=== PATIENT | male | born 1975 | race Caucasian/White ===

== ENCOUNTER 2020-05-09 15:37 | Outpatient (CLI) | payer SELFPAY ==
[2020-05-09 16:12] LABS: Basophils # 0.1 10^3/uL (0.0-0.1); Basophils % 0.8 %; Eosinophils % 0.1 %; Hematocrit 49.7 % (42.0-52.0); Hemoglobin 16.9 g/dL (11.7-16.6); Lymphocytes # 2.7 10^3/uL (0.8-4.8); Lymphocytes % 15.9 %; Mean Corpuscular Hemoglobin 27.7 pg (28.0-34.0); Mean Corpuscular Volume 81.5 fL (80-94); Mean Platelet Volume 10.5 fL (7.4-10.4); Monocytes # 1.1 10^3/uL (0.2-0.9); Monocytes % 6.6 %; Neutrophils # 12.89 10^3/uL (1.8-7.7); Neutrophils % 76.1 %; Nucleated Red Blood Cells % 0 %; Platelet Count 471 10^3/cmm (130-400); Red Cell Distribution Width 13.2 % (12.1-15.1); White Blood Count 16.9 10^3/uL (4.0-10.0)
[2020-05-09 16:34] LABS: Alanine Aminotransferase 7 U/L (0-41); Albumin Level 4.4 g/dL (3.5-5.2); Alkaline Phosphatase 44 IU/L (40-130); Anion Gap 19.9 (5-19); Aspartate Amino Transferase 12 U/L (0-40); Blood Urea Nitrogen 26 mg/dL (6-20); Calcium 10.5 mg/dL (8.5-10.5); Carbon Dioxide 25 mmol/L (22-29); Chloride 94 mmol/L (98-107); Globulin 4.4 g/dL (1.3-4.6); Glomerular Filtration Rate 51.3 mL/min (90-130); Glucose 152 mg/dL (65-115); Osmolality Calculated 290 mOsm/kg (285-295); Sodium 136 mmol/L (136-145); Total Bilirubin 0.4 mg/dL (0.15-1.2); Total Protein 8.8 g/dL (6.6-8.7)
[2020-05-09 16:41] LABS: Potassium 2.9 mmol/L (3.5-5.1)
[2020-05-09 17:08] LABS: Estmated Average Glucose 134; Hemoglobin A1C 6.3 % (4.0-6.0)
== END 2020-05-09 15:38 | disposition home or self-care (01) ==
LOC: LAB 15:40
PROVIDERS: Visit Provider General Practice
DX: E11.9 Type 2 diabetes mellitus without complications (principal)
CPT/HCPCS: 80053; 83036; 85025

== ENCOUNTER 2020-05-23 18:17 | Outpatient (CLI) | payer SELFPAY ==
[2020-05-23 19:40] LABS: Anion Gap 17.7 (5-19); Blood Urea Nitrogen 22 mg/dL (6-20); Carbon Dioxide 23 mmol/L (22-29); Chloride 98 mmol/L (98-107); Glomerular Filtration Rate 41.6 mL/min (90-130); Glucose 172 mg/dL (65-115); Osmolality Calculated 287 mOsm/kg (285-295); Potassium 3.7 mmol/L (3.5-5.1); Sodium 135 mmol/L (136-145)
[2020-05-23 20:07] LABS: Erythrocyte Sedimentation Rate 18 mm/hr (0-10)
== END 2020-05-23 18:18 | disposition home or self-care (01) ==
LOC: LAB 18:19
PROVIDERS: Visit Provider General Practice
DX: E87.6 Hypokalemia (principal); N18.9 Chronic kidney disease, unspecified; M21.379 Foot drop, unspecified foot
CPT/HCPCS: 80048; 85651

== ENCOUNTER → 2021-05-27 11:20 | Outpatient (BNVA) | payer MEDICAID, SELFPAY | PROVIDERS: PCP General Practice; Visit Provider Nurse Practitioner | DX: E11.65 Type 2 diabetes mellitus with hyperglycemia (principal); F17.210 Nicotine dependence, cigarettes, uncomplicated | CPT/HCPCS: 71046; 80053; 80061; 82043; 83036; 85025 ==

== ENCOUNTER → 2021-09-30 09:17 | Outpatient (BNVA) | payer MEDICAID, SELFPAY | PROVIDERS: PCP Nurse Practitioner; Visit Provider Nurse Practitioner | DX: E11.65 Type 2 diabetes mellitus with hyperglycemia (principal); I10 Essential (primary) hypertension; E11.43 Type 2 diabetes mellitus with diabetic autonomic (poly)neuropathy; K31.84 Gastroparesis; F17.210 Nicotine dependence, cigarettes, uncomplicated; E66.9 Obesity, unspecified | CPT/HCPCS: 80053; 83036; 85025 ==

== ENCOUNTER → 2021-11-10 14:11 | Outpatient (BNVA) | payer MEDICAID, SELFPAY | PROVIDERS: PCP Nurse Practitioner; Visit Provider Nurse Practitioner | DX: I10 Essential (primary) hypertension (principal); E11.65 Type 2 diabetes mellitus with hyperglycemia | CPT/HCPCS: 80053 ==

== ENCOUNTER → 2021-12-15 08:35 | Outpatient (BNVA) | payer MEDICAID, SELFPAY | PROVIDERS: PCP Nurse Practitioner; Visit Provider Nurse Practitioner | DX: E11.65 Type 2 diabetes mellitus with hyperglycemia (principal); E11.43 Type 2 diabetes mellitus with diabetic autonomic (poly)neuropathy; R00.0 Tachycardia, unspecified | CPT/HCPCS: 80053; 80061; 83036; 84443 ==

== ENCOUNTER → 2021-12-16 11:49 | Outpatient (BNVA) | payer MEDICAID, SELFPAY | PROVIDERS: PCP Nurse Practitioner; Visit Provider Nurse Practitioner | DX: E11.65 Type 2 diabetes mellitus with hyperglycemia (principal) | CPT/HCPCS: 81000 ==

== ENCOUNTER → 2022-04-01 13:12 | Outpatient (BNVA) | payer MEDICAID, SELFPAY | PROVIDERS: PCP Nurse Practitioner; Visit Provider Nurse Practitioner | DX: E11.65 Type 2 diabetes mellitus with hyperglycemia (principal) | CPT/HCPCS: 80053; 81000; 82043; 83036 ==

== ENCOUNTER → 2022-06-24 10:44 | Outpatient (BNVA) | payer MEDICAID, SELFPAY | PROVIDERS: PCP Nurse Practitioner; Visit Provider Nurse Practitioner | DX: E11.65 Type 2 diabetes mellitus with hyperglycemia (principal); E11.43 Type 2 diabetes mellitus with diabetic autonomic (poly)neuropathy; K31.84 Gastroparesis; E11.22 Type 2 diabetes mellitus with diabetic chronic kidney disease; I12.9 Hypertensive chronic kidney disease with stage 1 through stage 4 chronic kidney disease, or unspecified chronic kidney disease; N18.30 Chronic kidney disease, stage 3 unspecified | CPT/HCPCS: 80053; 80061; 81000; 83036 ==

== ENCOUNTER → 2022-09-28 09:40 | Outpatient (BNVA) | payer MEDICAID, SELFPAY | PROVIDERS: PCP Nurse Practitioner; Visit Provider Nurse Practitioner | DX: E11.65 Type 2 diabetes mellitus with hyperglycemia (principal); N18.30 Chronic kidney disease, stage 3 unspecified | CPT/HCPCS: 80053; 80061; 81000; 83036 ==

== ENCOUNTER → 2023-02-22 08:47 | Outpatient (BNVA) | payer MEDICAID, SELFPAY | PROVIDERS: PCP Nurse Practitioner; Visit Provider Nurse Practitioner | DX: E11.65 Type 2 diabetes mellitus with hyperglycemia (principal) | CPT/HCPCS: 80053; 80061; 81000; 82043; 83036 ==

== ENCOUNTER → 2023-06-01 09:53 | Outpatient (BNVA) | payer MEDICAID, SELFPAY | PROVIDERS: PCP Nurse Practitioner; Visit Provider Nurse Practitioner | DX: I10 Essential (primary) hypertension (principal); E11.65 Type 2 diabetes mellitus with hyperglycemia; E78.1 Pure hyperglyceridemia | CPT/HCPCS: 80053; 80061; 81000; 83036 ==

== ENCOUNTER 2025-03-25 14:15 | Emergency (ER) | payer SELFPAY ==
[2025-03-25 14:16] VITALS: BP 171/118; PULSE 106; RESP 16; TEMP 36.8; O2SAT 97; BMI 29.4
--- NOTE | 2025-03-25 14:26 | XRR_ITS ---
PROCEDURE INFORMATION: Exam: XR Right Foot Exam date and time: 03/25/2025 3:36 PM Age: 49 years old Clinical indication: Injury or trauma; Fall; Blunt trauma; Foot; Right; Additional info: Pain/fall/swelling TECHNIQUE: Imaging protocol: Radiologic exam of the right foot. Views: 3 or more views. COMPARISON: CR XR ankle RT min 3V* [id number] 03/25/2025 3:36 PM FINDINGS: Bones/joints: No acute fractures. No dislocations. No significant osseous lesions. Soft tissues: Mild soft tissue swelling anterior to the ankle. Mild soft tissue swelling of the distal aspect 1st toe. XR/XR foot RT min 3V* [id number] IMPRESSION: 1. No acute fractures or malalignment. 2. Mild soft tissue swelling anterior to the ankle. 3. Mild soft tissue swelling of the distal aspect 1st toe.
--- NOTE | 2025-03-25 14:26 | XRR_ITS ---
PROCEDURE INFORMATION: Exam: XR Right Ankle Exam date and time: 03/25/2025 3:36 PM Age: 49 years old Clinical indication: Injury or trauma; Fall; Blunt trauma; Ankle; Right; Additional info: Fall/swelling TECHNIQUE: Imaging protocol: Radiologic exam of the right ankle. Views: 3 or more views. COMPARISON: CR XR foot RT min 3V* [id number] 03/25/2025 3:36 PM FINDINGS: Bones/joints: No acute fractures. No dislocations. No significant osseous lesions. Soft tissues: Mild soft tissue swelling about the ankle. XR/XR ankle RT min 3V* [id number] IMPRESSION: 1. No acute fractures or malalignment. 2. Mild soft tissue swelling about the ankle.
--- NOTE | 2025-03-25 14:26 | XRR_ITS ---
PROCEDURE INFORMATION: Exam: XR Right Knee Exam date and time: 03/25/2025 3:32 PM Age: 49 years old Clinical indication: Pain; Knee; Right; Additional info: RT knee pain/swelling post fall yesterday TECHNIQUE: Imaging protocol: Radiologic exam of the right knee. Views: 2 views. COMPARISON: No relevant prior studies available. FINDINGS: Bones/joints: No acute fractures. No dislocations. No significant osseous lesions. Soft tissues: No significant soft tissue abnormalities. XR/XR knee RT 3V* [id number] IMPRESSION: No acute fractures or malalignment.
--- NOTE | 2025-03-25 14:26 | XRR_ITS ---
PROCEDURE INFORMATION: Exam: XR Right Hand Exam date and time: 03/25/2025 3:24 PM Age: 49 years old Clinical indication: Pain; Hand; Right; Additional info: RT hand/forearm pain/swelling post fall yesterday TECHNIQUE: Imaging protocol: Radiologic exam of the right hand. Views: 3 or more views. COMPARISON: CR XR forearm RT 2V [id number] 03/25/2025 3:24 PM FINDINGS: Bones/joints: No acute fractures. No dislocations. No significant osseous lesions. Soft tissues: No significant soft tissue abnormalities. XR/XR hand RT min 3V* [id number] IMPRESSION: No acute fractures or malalignment.
--- NOTE | 2025-03-25 14:26 | XRR_ITS ---
PROCEDURE INFORMATION: Exam: XR Right Forearm Exam date and time: 03/25/2025 3:24 PM Age: 49 years old Clinical indication: Pain; Lower or forearm; Right; Additional info: RT hand/forearm pain/swelling post fall yesterday TECHNIQUE: Imaging protocol: Radiologic exam of the right forearm. Views: 2 views. COMPARISON: CR XR hand RT min 3V* [id number] 03/25/2025 3:24 PM FINDINGS: Bones/joints: Normal. Soft tissues: Normal. XR/XR forearm RT 2V [id number] IMPRESSION: No acute findings.
--- NOTE | 2025-03-25 14:27 | CTR_ITS ---
PROCEDURE INFORMATION: Exam: CT Cervical Spine Without Contrast Exam date and time: 03/25/2025 2:45 PM Age: 49 years old Clinical indication: Injury or trauma; Fall; Blunt trauma TECHNIQUE: Imaging protocol: Computed tomography of the cervical spine without contrast. Radiation optimization: All CT scans at this facility use at least one of these dose optimization techniques: automated exposure control; mA and/or kV adjustment per patient size (includes targeted exams where dose is matched to clinical indication); or iterative reconstruction. COMPARISON: CT head wo con* [id number] 03/25/2025 2:45 PM RADIATION DOSE METRICS: Total DLP (mGy-cm): 287.5 FINDINGS: Bones: No acute fractures. No bony destructive lesions. Advanced degenerative disc changes at C5-C6. Lungs: Lung apices are normal. Soft tissues: Unremarkable. CT/CT cervical spin wo con* [id number] IMPRESSION: 1. No acute fractures or malalignment. 2. Advanced degenerative disc changes at C5-C6.
--- NOTE | 2025-03-25 14:27 | CTR_ITS ---
PROCEDURE INFORMATION: Exam: CT Head Without Contrast Exam date and time: 03/25/2025 2:45 PM Age: 49 years old Clinical indication: Injury or trauma; Fall; Blunt trauma (contusions or hematomas); Additional info: Fall yesterday, hit head TECHNIQUE: Imaging protocol: Computed tomography of the head without contrast. Radiation optimization: All CT scans at this facility use at least one of these dose optimization techniques: automated exposure control; mA and/or kV adjustment per patient size (includes targeted exams where dose is matched to clinical indication); or iterative reconstruction. COMPARISON: CT cervical spin wo con* [id number] 03/25/2025 2:45 PM RADIATION DOSE METRICS: Total DLP (mGy-cm): 1140.9 FINDINGS: Brain: No intracranial hemorrhage. Dobbs-white matter differentiation preserved. Periventricular white matter hypoattenuation most consistent with chronic microangiopathic changes. Cgwb-ps-bdvjkaym diffuse parenchymal volume loss. Small right basal ganglia chronic lacunar infarcts. Cerebral ventricles: No ventriculomegaly. Paranasal sinuses: Visualized sinuses are unremarkable. No fluid levels. Mastoid air cells: Visualized mastoid air cells are well aerated. Bones: Unremarkable. No acute fracture. Soft tissues: Unremarkable. CT/CT head wo con* [id number] IMPRESSION: 1. No acute intracranial findings. 2. Periventricular white matter hypoattenuation most consistent with chronic microangiopathic changes. 3. Rzrc-wq-gttppmkz diffuse parenchymal volume loss.
--- NOTE | 2025-03-25 14:45 | W.ED.FALL ---
HPI - Fall General: Chief Complaint: Fall Stated Complaint: right arm/leg pain s/p fall Time Seen by Provider: 03/25/25 14:18 Source: patient Mode of arrival: EMS Limitations: no limitations History of Present Illness: Patient is a 49 y/o Male presenting by EMS for a fall that occurred yesterday about around 1300. Patient states he thinks he was sleepwalking when taking a nap and fell off of his bed. He notes that he injured his right upper and lower extremity in the process, and did hit his head but denies LOC. No blood thinner use. He states that initially the pain was mild but has steadily worsened to the point where he cannot bear weight on his right leg due to the pain in his knee and ankle. He also reported swelling in his right hand that has worsened to the point where he cannot make a fist. He also reports numbness radiating up the right arm from the pain and swelling in his hand. No other injuries reported. No SOB, CP, N/V/D, abdominal pain, or other symptoms. He is requesting something for pain at this time. He was able to get up under his own power immediately after the fall. MD complaint: fall Onset (ago): day(s) Fall from: out of bed Fall witnessed: no Place fall occurred: home Loss of consciousness: None Prolonged down time: no Symptoms prior to fall: none Context: other (states he fell because he was sleepwalking) Location of injury - extremities: Right: arm, hand, knee, lower leg and ankle Associated symptoms-after fall: Denies abdominal pain, chest pain, headache(s) or neck pain Related Data Previous Rx's ?Medication ?Instructions ?Recorded blood-glucose meter (OneTouch #1 ea 06/13/21 Ultra2 Meter kit) blood sugar diagnostic (OneTouch #50 ea 06/18/21 Ultra Test strips) amlodipine 10 mg tablet (Norvasc) 10 mg PO DAILY #30 tabs 06/01/23 lisinopril 40 mg tablet 40 mg PO DAILY #30 tabs 06/01/23 metoprolol succinate 50 mg 50 mg PO DAILY #30 tabs 06/01/23 tablet,extended release 24 hr (Toprol XL) potassium chloride 10 mEq 10 meq PO DAILY #30 tabs 06/01/23 tablet,extended release rosuvastatin 5 mg tablet (Crestor) 5 mg PO DAILY #30 tabs 06/01/23 fenofibrate nanocrystallized 48 mg 48 mg PO DAILY #30 tabs 06/03/23 tablet (Tricor) dulaglutide 1.5 mg/0.5 mL 1.5 mg (0.5 mL) SUBCUT .weekly #2 06/14/23 subcutaneous pen injector mL (Trulicity) insulin degludec 100 unit/mL (3 10 unit (0.1 mL) SUBCUT DAILY #15 06/14/23 mL) subcutaneous pen (Tresiba mL FlexTouch U-100 insulin) pen needle, diabetic 33 gauge x #100 ea 06/14/23/ ketorolac 10 mg tablet 10 mg PO Q8H PRN pain #15 tabs 03/25/25 Allergies Allergy/AdvReac Type Severity Reaction Status Date / Time No Known Allergies Allergy Unverified 06/01/23 09:20 Review of Systems General: Reports: 10 or more systems reviewed and unremarkable except in HPI and below Const: Reports: other (fall); Denies: fever(s) or chills Card: Denies: chest pain Resp: Denies: dyspnea or productive cough GI: Denies: abdominal pain, nausea, vomiting or diarrhea : Denies: flank pain Musc: Reports: extremity pain, extremity swelling, joint pain, joint swelling and limited range of motion; Denies: neck pain, back pain, joint redness, joint warmth or muscle weakness Skin/Breast: Denies: rash Neuro: Denies: headache(s), numbness in extremities or weakness in extremities PFSH ED PFSH: Medical History CKD (chronic kidney disease) stage 3, GFR 30-59 ml/min Obesity (BMI 30-39.9) Gastroparesis due to DM Cigarette smoker History of right foot drop 2020 Essential hypertension Diabetes mellitus with hyperglycemia, without long-term current use of insulin Surgical History History of skin graft right hand Family History Family/Other Cancer Uncle with liver and lung Cigarette smoker Grandmother Diabetes Hypertension Grandfather Hypertension Stroke Mother Hypertension Father Hypertension Other Dementia Denies family history of Anesthesia complication Bleeding disorder Social History Smoking and tobacco/nicotine status: current every day tobacco/nicotine user Alcohol intake: former Substance/Drug Use: never Adopted: No Caregiver/support person: No Lives independently: Yes Household members: family Housing: House Marital status: Single Number of children: 0 service: No Current occupational status: unemployed Current occupational exposures/hazards: No Pets and animals: Yes Do you think of yourself as: Straight/Heterosexual Current gender identity: Male Physical Exam Const: COMMON NORMALS: no acute distress, patient oriented x3, no limitations, healthy appearing, alert and well nourished HENMT: COMMON NORMALS: normocephalic and atraumatic HEAD & SCALP: normocephalic and atraumatic Neck/C-Spine: COMMON NORMALS: full ROM, supple and no meningeal signs Resp: COMMON NORMALS: normal respiratory effort, No use of accessory muscles and clear to auscultation bilaterally AUSCULTATION: clear to auscultation bilaterally Cardio: COMMON NORMALS: regular rate and regular rhythm RATE: regular rate RHYTHM: regular rhythm Extremity: COMMON NORMALS: normal to inspection, full ROM, capillary refill normal, no joint enlargement and no clubbing, cyanosis or edema NARRATIVE EXTREMITY EXAM: Edema and tenderness to dorsum of right hand Edema of right ankle, tender to palpation long lateral malleolus All other joints and extremities palpated and nontender Neuro: COMMON NORMALS: patient oriented x3, moves all extremities, no focal motor deficits and no sensory deficits noted SENSORIUM/ORIENTATION: Yes alert MENINGEAL SIGNS: Yes no meningeal signs Skin: NARRATIVE SKIN EXAM: Chronic wounds to bilateral lower extremities in various stages of healing Course Vital Signs: Vital signs: Vital Signs Temperature 98.3 F 03/25/25 14:16 Pulse Rate 76 03/25/25 16:12 Respiratory Rate 16 03/25/25 14:16 Blood Pressure 162/101 03/25/25 16:12 Pulse Oximetry 95 03/25/25 16:12 Oxygen Delivery Me thod Room Air 03/25/25 16:12 MDM - Fall Medical Decision Making Patient presented to the emergency department by EMS for fall yesterday, injuring right upper and lower extremity. X-rays were all unremarkable, and his head and neck were scanned by CT and also negative. Toradol was given for pain and upon recheck states that he felt better. He will be allowed discharged home with conservative therapy discussed. Lab Data Radiology Impressions Ankle X-Ray 03/25/25 14:26 IMPRESSION: 1. No acute fractures or malalignment. 2. Mild soft tissue swelling about the ankle. Foot X-Ray 03/25/25 14:26 IMPRESSION: 1. No acute fractures or malalignment. 2. Mild soft tissue swelling anterior to the ankle. 3. Mild soft tissue swelling of the distal aspect 1st toe. Forearm X-Ray 03/25/25 14:26 IMPRESSION: No acute findings. Hand X-Ray 03/25/25 14:26 IMPRESSION: No acute fractures or malalignment. Knee X-Ray 03/25/25 14:26 IMPRESSION: No acute fractures or malalignment. Cervical Spine CT 03/25/25 14:27 IMPRESSION: 1. No acute fractures or malalignment. 2. Advanced degenerative disc changes at C5-C6. Head CT 03/25/25 14:27 IMPRESSION: 1. No acute intracranial findings. 2. Periventricular white matter hypoattenuation most consistent with chronic microangiopathic changes. 3. Kmhu-ku-aioxckoi diffuse parenchymal volume loss. All radiology interpretation(s) finalized by discharge Discharge Plan Discharge Patient Disposition: Home Clinical Impression: Fall Qualifiers: Encounter type: initial encounter Qualified Code(s): W19.XXXA - Unspecified fall, initial encounter Right ankle sprain Qualifiers: Encounter type: initial encounter Involved ligament of ankle: unspecified ligament Qualified Code(s): S93.401A - Sprain of unspecified ligament of right ankle, initial encounter Right knee sprain Qualifiers: Encounter type: initial encounter Involved ligament of knee: unspecified ligament Qualified Code(s): S83.91XA - Sprain of unspecified site of right knee, initial encounter Contusion of hand, right Qualifiers: Encounter type: initial encounter Qualified Code(s): S60.221A - Contusion of right hand, initial encounter CHI (closed head injury) Qualifiers: Encounter type: initial encounter Qualified Code(s): S09.90XA - Unspecified injury of head, initial encounter Condition: Stable Prescriptions: New ketorolac 10 mg tablet 10 mg PO Q8H PRN (Reason: pain) Qty: 15 0RF No Action (DME) blood-glucose meter [OneTouch Ultra2 Meter] Kit See Rx Instructions .Route Qty: 1 0RF Rx Instructions: As directed amlodipine [Norvasc] 10 mg tablet 10 mg PO DAILY Qty: 30 2RF lisinopril 40 mg tablet 40 mg PO DAILY Qty: 30 2RF metoprolol succinate [Toprol XL] 50 mg tablet extended release 24 hr 50 mg PO DAILY Qty: 30 2RF potassium chloride 10 mEq tablet extended release 10 meq PO DAILY Qty: 30 2RF rosuvastatin [Crestor] 5 mg tablet 5 mg PO DAILY Qty: 30 2RF fenofibrate nanocrystallized [Tricor] 48 mg tablet 48 mg PO DAILY Qty: 30 2RF (DME) OneTouch Ultra Test Strip See Rx Instructions .Route Qty: 50 5RF Rx Instructions: 1 daily Trulicity 1.5 mg/0.5 mL pen injector 1.5 mg SUBCUT .weekly Qty: 2 2RF insulin degludec [Tresiba FlexTouch U-100] 100 unit/mL (3 mL) insulin pen 10 unit SUBCUT DAILY Qty: 15 0RF (DME) pen needle, diabetic 33 gauge x 5/32 needle See Rx Instructions .ROUTE .MEDSUPPLY Qty: 100 5RF Rx Instructions: 1 time day Discharge Orders: Discharge ED (Routine); Ordered 03/25/25 Ordered By: Markos Kaye Patient Instructions: Patient Portal & [facility] Instructions Activity Restrictions/Additional Instructions: Home recovery plan These instructions are for a 49-year-old male with: - Right ankle sprain - Right knee sprain - Right hand contusion (bruise) - Mild head injury (concussion) with a normal CT scan The plan is gentle rest and recovery at home. Please read all sections, including when to seek help. What to expect - Pain, swelling, and stiffness are common for the first few days after a sprain or bruise. These usually improve steadily over 1?2 weeks, with full recovery taking several weeks depending on severity. - After a mild head injury with a normal CT scan, most adults recover within days to a few weeks. Some may have headache, fatigue, mild dizziness, trouble concentrating, or sleep changes. These usually get better with time and pacing of activities. First 48?72 hours: protect and reduce swelling - Protection and rest: Limit activities that increase pain or swelling. Use a brace or supportive wrap for the ankle as advised. Avoid high-impact activities. - Ice (cold packs): Apply cold packs wrapped in a thin cloth to the ankle, knee, and hand for up to 20 minutes at a time, 3?4 times daily in the first 2?3 days. Do not put ice directly on skin. - Compression: Use a snug (not tight) elastic wrap on the ankle (and knee if helpful) to provide support and comfort. If toes become numb, tingly, pale, or very cold, loosen the wrap. - Elevation: When resting, raise the ankle and hand above heart level to help reduce swelling. - Medicines for pain: Acetaminophen or a short course of NSAIDs (like ibuprofen or naproxen) can reduce pain and swelling. Use the lowest effective dose for the shortest time unless told otherwise. Example glcy-hsz-jfmhczk dosing (if no kidney disease, ulcers, bleeding risk, or medication conflicts): - Acetaminophen: up to 650 mg every 6 hours (max 3,000 mg/day). - Ibuprofen: 400 mg every 6?8 hours with food (max 1,200 mg/day OTC). - Naproxen: 220 mg every 12 hours with food (max 440 mg/day OTC). Stop if stomach pain, bleeding, or other side effects occur. Avoid using more than one NSAID at the same time. Gentle movement and walking - Ankle and knee: Begin gentle xazyo-og-lzesgb exercises as pain allows (usually within 24?72 hours). Examples: ankle circles, alphabet with the foot, gentle knee bends. Gradually add weight bearing and short walks as tolerated. A lace-up or semirigid ankle brace often helps when starting to walk. - Hand: Open and close the hand gently several times per day to limit stiffness, as long as pain allows. - Avoid heat on the injured areas during the first few days, as it may increase swelling. Next steps after the first few days - Progress activity slowly. Increase walking time and light daily tasks if symptoms stay the same or improve within 24 hours after an increase. If pain or swelling worsens, back off and try again more gradually. - Add light strengthening and balance exercises as pain allows (for the ankle and knee). Balance training reduces the chance of another ankle sprain. - Most mild sprains improve significantly within 1?2 weeks. If not improving as expected, follow up for recheck. Head injury (concussion) guidance - Relative rest for 24?48 hours: Light activities at home are okay if they do not make symptoms worse. Avoid strenuous exercise, heavy lifting, or activities with a risk of another head impact. - Gradual return to activity: After 24?48 hours, slowly increase physical and thinking activities (walking, light chores, screen time) as long as symptoms remain mild and improve over time. If symptoms worsen, decrease activity and try again more slowly the next day. - Sleep: Keep a regular sleep schedule. Naps are okay if needed early on. - Pain control: Acetaminophen can be used for headache early. If cleared for NSAIDs above, ibuprofen or naproxen can be used after the first day if needed and if no bleeding risk. - No alcohol or recreational drugs during recovery. - Driving/work: Delay driving and return to work until symptoms are mild and attention and reaction time feel normal. Start with shorter periods and increase as tolerated. Red flags: seek urgent care or call emergency services if any of the following occur - Worsening severe headache, repeated vomiting, confusion, trouble waking up, seizures, weakness or numbness in face/arm/leg, slurred speech, worsening dizziness, or any new neurologic symptoms after the head injury. - Increasing ankle or knee pain/swelling with inability to bear any weight after 48?72 hours, a visible deformity, the joint locking or giving way, or numb/cold foot. - Hand: severe swelling, increasing pain, severe tenderness over a bone with use, numbness/tingling, or inability to move fingers fully. Follow-up - Recheck in about 3?5 days or sooner if symptoms are not improving, to reassess swelling, motion, and stability, and to update the rehab plan. - Consider physical therapy if pain, stiffness, or instability limits progress after the first 1?2 weeks (especially for the ankle to reduce reinjury risk). - If concussion symptoms persist beyond 2?4 weeks or interfere with daily life, follow up for a targeted rehab plan (e.g., vestibular/ocular therapy or supervised aerobic exercise). Safe use tips - Keep wraps/braces clean and dry. Remove briefly daily to check skin. - Do not tighten wraps so much that circulation is reduced. - Keep ice wrapped; never place directly on skin. Limit to 20 minutes at a time. - Avoid high-risk activities (ladders, contact sports) until fully recovered and cleared. Why this plan - Early protection, cold therapy, compression, elevation, pain control, and a quick shift toward gentle movement and functional support help pain and swelling and support faster recovery after sprains, while reducing the chance of long-term problems. Balance and strengthening lower the risk of repeat ankle sprains. - For mild head injury with a normal CT scan, education, initial relative rest (24?48 hours), and a gradual, symptom-guided return to activity are standard. Most adults recover well; clear return precautions help identify rare complications early. 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
[2025-03-25 15:30] VITALS: BP 181/103; PULSE 78; O2SAT 96
--- NOTE | 2025-03-25 15:50 | PC.PHAR ---
Pt states he lost his job and insurance and has no money to pay for medications. He has not taken since June 2023.
[2025-03-25 16:12] VITALS: BP 162/101; PULSE 76; O2SAT 95
--- OUTSIDE RECORDS SUMMARY | 2025-03-28 07:43 | XMS_ITS | Clinical Summary ---
Author Organization [facility] Address [address] [place] [address] Care Team Providers Care Hyster Driver Name Role Phone Unavailable Primary Care Provider Unavailabl e Allergies No known active allergies Medications hydrALAZINE (APRESOLINE) 50 mg tablet Take 1 Tablet (50 mg) by mouth 3 times daily. 90 Tablet 02/26/2020 3:46 PM CDT 02/26/2020 Active amLODIPine (NORVASC) 10 mg tablet Take 1 Tablet (10 mg) by mouth daily. 30 Tablet 02/26/2020 3:46 PM CDT 02/27/2020 Active metoprolol succinate (TOPROL XL) 100 mg Extended Release 24 hour tablet Take 1 Tablet (100 mg) by mouth daily. 30 Tablet 02/26/2020 3:46 PM CDT 02/27/2020 Active glimepiride (AMARYL) 2 mg tablet Take 1 Tablet (2 mg) by mouth daily with breakfast. DIABETES 30 Tablet 02/26/2020 3:46 PM CDT 02/26/2020 Active lisinopriL (PRINIVIL) 20 mg tablet Take 20 mg by mouth daily. Active POTASSIUM ORAL Take 1 Tablet by mouth daily. Active metFORMIN (GLUCOPHAGE) 500 mg tablet Take 500 mg by mouth 2 times daily with meals. Active Active Problems Problem Noted Date Diagnosed Date Hypertensive urgency 02/22/2020 Enteritis 02/22/2020 Stage 3 chronic kidney disease 02/22/2020 Type 2 diabetes mellitus with hyperglycemia 04/2020 Non compliance w medication regimen 02/22/2020 Hypokalemia 02/22/2020 S/P split thickness skin graft 06/30/2016 Tobacco use 06/08/2016 Social History Tobacco Use Types Packs/Day Years Used Date Smoking Tobacco: Every Day Cigarettes Smokeless Tobacco: Never Tobacco Cessation:Ready to Q uit: No; Counseling Given: Yes Alcohol Use Standard Drinks/Week Comments Not Currently 0 (1 standard drink = 0.6 oz pur e alcohol) Sex and Gender Information Value Date Recorded Sex Assigned at Not on file Legal Sex Male 8:51 AM CDT Gender Identity Not on file Sexual Orientation Not on file Last Filed Vital Signs Vital Sign Reading Time Taken Comments Blood Pressure 163/85 02/02/2021 5:03 AM CDT Pulse 98 02/02/2021 5:03 AM CDT Temperature 36.7 C (98.1 F) 02/02/2021 5:03 AM CDT Respiratory Rate 16 02/02/2021 5:03 AM CDT Oxygen Saturation 98% 02/02/2021 5:03 AM CDT Inhaled Oxygen Concentration - - Weight 72.6 kg (160 lb) 02/02/2021 12:46 AM CDT Height 167.6 cm (5' 6 ) 02/02/2021 12:46 AM CDT Body Mass Index 25.82 02/02/2021 12:46 AM CDT Plan of Treatment Health Maintenance Due Date Last Done Comments DTAP/TDAP/TD VACCINES (1 - Tdap) 1996 HEPATITIS B VACCINES (1 of 3 - 19+ 3-dose series) 08/1996 COLORECTAL SCREENING 2022 Colorectal Cancer Screening 2022 FIT-DNA Q 3 years 2022 FIT/FOBT Q 1 year 2022 Flex Sig/CT Colonography Q 5 years 2022 INFLUENZA VACCINE (#1) 2025 Advance Directives For more information, please contact: [phone] * Full Code (Latest Code Status on File) Date Activated Date Inactivated Comments 02/22/2020 10:13 PM 02/26/2020 6:19 PM * Full Code Date Activated Date Inactivated Comments 06/09/2016 5:05 AM 06/09/2016 1:17 PM
--- OUTSIDE RECORDS SUMMARY | 2025-03-28 07:43 | XMS_ITS | Clinical Summary ---
Author Organization [facility] Address [address] [place] [address] Care Team Providers Care Child Welfare Consultant Name Role Phone Unavailable Primary Care Provider Unavailabl e Allergies No known active allergies Medications metFORMIN (GLUCOPHAGE) 500 mg tablet Take 500 mg by mouth 2 times daily with meals. Active lisinopriL (PRINIVIL) 20 mg tablet Take 20 mg by mouth daily. Active metoprolol tartrate (LOPRESSOR) 25 mg tablet Take 25 mg by mouth daily. Active amlodipine besylate (AMLODIPINE ORAL) Take 10 % by mouth Continuous as needed. Active azithromycin (ZITHROMAX) 500 mg tablet Take 1 Tablet (500 mg) by mouth daily. 3 Tablet 1 Active lisinopriL (PRINIVIL) 20 mg tablet Take 20 mg by mouth daily. 0 Active metFORMIN (GLUCOPHAGE) 500 mg tablet Take 500 mg by mouth 2 times daily with meals. 0 Active POTASSIUM ORAL Take 1 Tablet by mouth daily. 0 Active Active Problems Problem Noted Date Diagnosed Date Upper GI bleeding 05/02/2021 MARU (acute kidney injury) 05/02/2021 Epigastric pain 05/02/2021 Hypertensive urgency 02/22/2020 Enteritis 02/22/2020 Stage 3 chronic kidney disease 02/22/2020 Type 2 diabetes mellitus with hyperglycemia 04/2020 Non compliance w medication regimen 02/22/2020 Hypokalemia 02/22/2020 S/P split thickness skin graft 06/30/2016 Tobacco use 06/08/2016 Social History Tobacco Use Types Packs/Day Years Used Date Smoking Tobacco: Every Day Cigarettes Smokeless Tobacco: Never Alcohol Use Standard Drinks/Week Comments Not Currently 0 (1 standard drink = 0.6 oz pur e alcohol) Sex and Gender Information Value Date Recorded Sex Assigned at Not on file Legal Sex Male 5:16 AM 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 Gender Identity Not on file Sexual Orientation Not on file Last Filed Vital Signs Vital Sign Reading Time Taken Comments Blood Pressure 180/87 05/13/2021 4:40 PM CDT Pulse 75 05/03/2021 9:08 AM CDT Temperature 36.3 C (97.4 F) 05/13/2021 4:40 PM CDT Respiratory Rate 20 05/13/2021 4:40 PM CDT Oxygen Saturation 99% 05/13/2021 4:40 PM CDT Inhaled Oxygen Concentration - - Weight 70.8 kg (156 lb) 05/13/2021 2:17 PM CDT Height 175.3 cm (5' 9 ) 05/13/2021 2:17 PM CDT Body Mass Index 23.04 05/13/2021 2:17 PM CDT Plan of Treatment Health Maintenance Due Date Last Done Comments DIABETES ANNUAL FOOT EXAM 11/15/1995 DIABETES ANNUAL RETINAL EXAM 11/15/1995 DIABETES HBA1C Q 6 MONTHS 11/15/1995 DIABETES MICROALBUMIN ANNUAL SCREEN 11/15/1995 LDL CHOLESTEROL ANNUAL 11/15/1995 DTAP/TDAP/TD VACCINES (1 - Tdap) 1996 HEPATITIS B VACCINES (1 of 3 - 19+ 3-dose series) 08/1996 COLORECTAL SCREENING 2022 Colorectal Cancer Screening 2022 FIT-DNA Q 3 years 2022 FIT/FOBT Q 1 year 2022 Flex Sig/CT Colonography Q 5 years 2022 INFLUENZA VACCINE (#1) 2025 Insurance MEDICAID [place] Advance Directives For more information, please contact: [phone] * Full Code (Latest Code Status on File) Date Activated Date Inactivated Comments 05/02/2021 6:38 PM 05/03/2021 4:35 PM
--- OUTSIDE RECORDS SUMMARY | 2025-03-28 07:43 | XMS_ITS | Encounter Summary ---
Author Organization [facility] Address [address] [place] [address] Phone Care Team Providers Care Hotel General Manager Name Role Phone Yordan Montanez DO Primary Care Provider [phone] Encounter Details Date Type Department Care Team (Late st Contact Info) Description 06/08/2023 Orders Only [facility] [address] [place] [address] Stage 3 chronic kidney disease, not otherwise specified (HCC) Social History Tobacco Use Types Packs/Day Years Used Date Smoking Tobacco: Never Assessed Sex and Gender Information Value Date Recorded Sex Assigned at Not on file Legal Sex Male 12:00 PM EDT Gender Identity Not on file Sexual Orientation Not on file documented as of this encounter Plan of Treatment Not on file documented as of this encounter Visit Diagnoses Diagnosis Stage 3 chronic kidney disease, not otherwise specified (HCC) documented in this encounter Care Teams Hotel General Manager Relationship Specialty Start Date End Date Yordan Montanez DO [address] [place] [address] PCP - General Family Medicine 06/08/23 documented as of this encounter
--- OUTSIDE RECORDS SUMMARY | 2025-03-28 07:43 | XMS_ITS | Clinical Summary ---
Author Organization [facility] Address [address] [place] [id number] Care Team Providers Care Editor School Photograph Name Role Phone Yordan Montanez DO Primary Care Provider [phone] Allergies No known active allergies Medications amLODIPine (NORVASC) 10 MG tablet Take 10 mg by mouth 1 (one) time each day Active Dapagliflozin Propanediol (Farxiga) 10 MG tablet Take 10 mg by mouth 1 (one) time each day in the morning Active Trulicity 1.5 MG/0.5ML solution pen-injector INJECT 1.5 MG UNDER SKIN WEEKLY 06/15/2023 Active potassium chloride 10 MEQ CR tablet Take 10 mEq by mouth 1 (one) time each day 07/05/2023 Active metoprolol succinate XL (TOPROL XL) 50 MG 24 hr tablet Take 50 mg by mouth 1 (one) time each day Active metFORMIN (GLUCOPHAGE) 500 MG tablet Take 500 mg by mouth 05/28/2020 Active lisinopril 40 MG tablet Take 40 mg by mouth 1 (one) time each day Active hydrALAZINE 50 MG tablet Take 50 mg by mouth in the morning and 50 mg at noon and 50 mg in the evening. 02/26/2020 Active glimepiride (AMARYL) 2 MG tablet Take 2 mg by mouth in the morning. 02/26/2020 Active fenofibrate (TRICOR) 48 MG tablet Take 48 mg by mouth 1 (one) time each day 07/05/2023 Active rosuvastatin (CRESTOR) 5 MG tablet Take 5 mg by mouth 1 (one) time each day 07/05/2023 Active Family History Medical History Relation Comments Hypertension Maternal Grandfather Stroke Maternal Grandfather Diabetes Maternal Grandmother Hypertension Maternal Grandmother Relation Status Comments Maternal Grandfather Maternal Grandmother Social History Tobacco Use Types Packs/Day Years Used Date Smoking Tobacco: Every Day Cigarettes Tobacco Cessation:Ready to Q uit: Not Asked; Counseling Given: Not Answered Alcohol Use Standard Drinks/Week Comments Not Currently 0 (1 standard drink = 0.6 oz pur e alcohol) Sex and Gender Information Value Date Recorded Sex Assigned at Not on file Legal Sex Male 12:00 PM EDT Gender Identity Not on file Sexual Orientation Not on file Plan of Treatment Health Maintenance Due Date Last Done Comments Hepatitis B Vaccine (1 of 3 - 19+ 3-dose series) 11/14 Pneumococcal Vaccine: Peds ( 0 to 5 Years) and At-Risk Patients (6 to 49 Years) (1 of 2 - PCV) 1996 Diabetes: Hemoglobin A1C 06/15/2023 Diabetes: Ophthalmology Exam 06/15/2023 Diabetes: Pedal Pulse Checked 06/15/2023 Diabetes: Sensory Foot Exam 06/15/2023 Diabetes: Visual Foot Exam 06/15/2023 Influenza Vaccine (#1) 2025 Care Teams Editor School Photograph Relationship Specialty Start Date End Date Yordan Montanez DO [address] [place] [id number] PCP - General Family Medicine 06/08/23
== END 2025-03-25 17:24 | disposition home or self-care (01) ==
PROVIDERS: Emergency Provider Physician Assistant
DX: S09.90XA Unspecified injury of head, initial encounter (principal); S93.401A Sprain of unspecified ligament of right ankle, initial encounter; S83.91XA Sprain of unspecified site of right knee, initial encounter; S60.221A Contusion of right hand, initial encounter; W06.XXXA Fall from bed, initial encounter; Z79.899 Other long term (current) drug therapy; Z79.85 Long-term (current) use of injectable non-insulin antidiabetic drugs; Z79.84 Long term (current) use of oral hypoglycemic drugs; N18.30 Chronic kidney disease, stage 3 unspecified; E11.22 Type 2 diabetes mellitus with diabetic chronic kidney disease; E11.43 Type 2 diabetes mellitus with diabetic autonomic (poly)neuropathy; K31.84 Gastroparesis; I12.9 Hypertensive chronic kidney disease with stage 1 through stage 4 chronic kidney disease, or unspecified chronic kidney disease; F17.200 Nicotine dependence, unspecified, uncomplicated
CPT/HCPCS: 70450; 72125; 73090; 73130; 73562; 73610; 73630; 96374; 99285; J1885